=== PATIENT | male | born 1990 ===

== ENCOUNTER 2021-07-11 15:00 | Emergency (ER) | payer OTHER, BC ==
[~2021-07-11] VITALS: Ht 180.3 cm; Wt 127.9 kg
== END 2021-07-11 16:11 | disposition home or self-care (01) ==
LOC: ER 15:00
DX: S01.01XA Laceration without foreign body of scalp, initial encounter (principal); V89.2XXA Person injured in unspecified motor-vehicle accident, traffic, initial encounter
CPT/HCPCS: 12002; 99283-25